=== PATIENT | female | born 1930 | race Caucasian/White ===

== ENCOUNTER 2018-01-16 09:46 | Inpatient (IN) ==
[2018-01-16] MEDS ORDERED: Clindamycin 900 MG/50 ML 900 MG/50 ML IV.SOLN IVPB ONE (10:18)
[2018-01-16] MEDS ORDERED: Ringers Solution, Lactated 1,000 ML IVC SCH ×2 (10:30→13:55)
--- NOTE | 2018-01-16 10:32 | History & Physical Report ---
Date of Encounter: 01/16/18 Time of Encounter: 10:31 24 Hour HP Update - Instructions Instructions: If the History and Physical is less than 30 days old and was completed prior to A.M. admission and or procedure and has NOT been updated on calendar day of procedure please complete this update prior to performing procedure. - Update Patient reports changes in Medical Condition: No Changes in examination, assessment, or condition: No Changes in Medication: No Preop tests/diagnostics Reviewed: Yes Surgery Remains Indicated: Yes Consent for Planned Operative Procedure(s) Verified: Yes - Pre-Operative Checklist Preoperative Checklist Indicated: No Prophylactic Antibiotic Ordered: Yes Is VTE Prophylaxis Indicated?: Yes
[2018-01-16] MEDS ORDERED: Acetaminophen IV 1,000 MG/100 ML INFUS..BTL IVPB ONE (11:03)
[2018-01-16] MEDS ORDERED: Famotidine 20 MG/2 ML VIAL IVP ONE (11:03)
--- NOTE | 2018-01-16 11:13 | Anesthesia Evaluation PreOp ---
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) Other Medical History: Denies Any Significant HX, Other (Cataracts [facility] [place]) Anesthesia History: No Prior Anesthetic Complications, Problems (N/V) Alcohol Use: none Drug use: none Medications and Allergies Duloxetine HCl [Cymbalta] 60 mg PO DAILY 02/28/15 [History] Enalapril Maleate [Vasotec] 10 mg PO DAILY 02/28/15 [History] Ascorbic Acid [Vitamin C] 1,000 mg PO 01/16/18 [History] Cholecalciferol (Vitamin D3) [Vitamin D] 1,000 unit PO DAILY 01/16/18 [History] Ipratropium [place] 15 ml NS BID 01/16/18 [History] Metoprolol Succinate [Toprol Xl] 25 mg PO DAILY 01/16/18 [History] Tramadol HCl [Ultram] 50 mg PO BID PRN 01/16/18 [History] Vit A/Vit C/Vit E/Zinc/Copper [Preservision Areds Tablet] 1 each PO DAILY [History] Vitamin B Complex [B Complex] 1 each PO DAILY 01/16/18 [History] 3 Allergy/AdvReac Type Severity Reaction Status Date / Time ampicillin Allergy See Verified 02/28/15 16:49 Comments Cefaclor [From Ceclor] Allergy See Verified 02/28/15 16:49 Comments Cefadroxil [From Duricef] Allergy See Verified 02/28/15 16:49 Comments cephalexin [From Keflex] Allergy See Verified 02/28/15 16:49 Comments chloramphenicol Allergy See Verified 02/28/15 16:49 [From Chloromycetin] Comments ciprofloxacin [From Cipro] Allergy See Verified 02/28/15 16:49 Comments cyclopenthiazide Allergy See Verified 02/28/15 16:49 Comments doxycycline Allergy See Verified 02/28/15 16:49 Comments Erythromycin Base Allergy See Verified 02/28/15 16:49 Comments nitrofurantoin Allergy See Verified 02/28/15 16:49 [From Macrobid] Comments Penicillins Allergy See Verified 02/28/15 16:49 Comments phenylbutazone Allergy See Verified 02/28/15 16:49 [From Butazolidin] Comments propoxyphene [From Darvon] Allergy See Verified 02/28/15 16:49 Comments Streptomycin Allergy See Verified 02/28/15 16:49 Comments Sulfa (Sulfonamide Allergy See Verified 02/28/15 16:49 Antibiotics) Comments - Meds/Allergy Pre-op Review Medications Reviewed: Yes Allergies Reviewed: Yes Beta Blockers on Current Med List: Yes (Metoprolol today 0800) Anesthesia Results - Labs Laboratory Tests 01/15/18 01/15/18 10:56 10:56 Hgb 16.0 H Hct 48.4 H Plt Count 207 Sodium 136 Potassium 4.6 BUN 19 Creatinine 0.89 - Imaging EKG: report reviewed (SR) Additional studies: ECHO 2016 EF 60% mild pulm htn Anesthesia Exam O2 Sat Height 1.63 m Height 1.63 m Weight 96.162 kg Weight 96.162 kg O2 Sat by Pulse Oximetry 96 Vital Signs Temp Pulse Resp BP Pulse Ox 98.2 F 63 18 145/82 96 01/16/18 10:49 01/16/18 10:49 01/16/18 10:49 01/16/18 10:49 01/16/18 10:49 Height: 5'4 Weight: 212 lbs NPO (# of Hours): MN Pain Scale: 0 - HEENT Pupil (Motor): Pupils equal, EOMI Mallampati: III Denture Type: Upper: Complete Oral Opening: Greater than 3 - 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
[2018-01-16] MEDS ORDERED: *HR* FentaNYL (PF) 100 MCG/2 ML VIAL ONE (11:25)
[2018-01-16] MEDS ORDERED: Dexamethasone 4 MG/ML VIAL ONE ×2 (11:33→12:19)
[2018-01-16] MEDS ORDERED: Bupivacaine/Clonidine Syringe 1 EACH SYRINGE ONE (11:36)
[2018-01-16] MEDS ORDERED: ROPIVACAINE HCL/PF 0.5% 30 ML VIAL ONE (11:36)
[2018-01-16] MEDS ORDERED: *HR* Succinylcholine 200 MG/10 ML VIAL IVP ONE (11:38)
[2018-01-16] MEDS ORDERED: *HR* Propofol 200 MG/20 ML VIAL IVP ONE (11:38)
[2018-01-16] MEDS ORDERED: Lidocaine -MPF 2% 2 ML VIAL ONE (11:38)
[2018-01-16] MEDS ORDERED: *HR* Labetalol 20 MG/4 ML SYRINGE IVP PRN (11:51)
[2018-01-16] MEDS ORDERED: *HR* Promethazine 25 MG/ML VIAL IVP PRN (11:51)
[2018-01-16] MEDS ORDERED: *HR* OxyCODONE Immed Rel 5 MG TABLET PO PRN ×2 (11:51→13:55)
--- NOTE | 2018-01-16 12:10 | Discharge Summary ---
<Osmin Estrada - Last Filed: 01/16/18 12:08> Orders not resulted at time of discharge: Pending orders 01/16/18 10:32 XR shoulder complete RT [XR] Routine 01/16/18 10:33 Hemoglobin and Hematocrit [HEME] Routine 01/16/18 11:03 US anesthesia pain block [US] Routine Date of Encounter: 01/16/18 - Discharge Diagnosis (1) Hypertension Priority: Secondary Status: Chronic Qualifiers: Hypertension type: unspecified Qualified Code(s): I10 - Essential (primary ) hypertension (2) Obesity (BMI 35.0-39.9 without comorbidity) Priority: Secondary Status: Chronic (3) Right rotator cuff tear arthropathy Priority: Primary Status: Chronic (4) Status post reverse total replacement of right shoulder Priority: Primary Status: Acute (5) Hyperlipidemia Priority: Secondary Status: Chronic Qualifiers: Hyperlipidemia type: unspecified Qualified Code(s): E78.5 - Hyperlipidemia , unspecified - Hospital Course Hospital course: Ms. Mitchell is a 87 year old female - Time Spent with Patient Total time spent providing and/or coordinating discharge services: - Discharge Medications Home Medications: Duloxetine HCl [Cymbalta] 60 mg PO DAILY 02/28/15 [History] Enalapril Maleate [Vasotec] 10 mg PO DAILY 02/28/15 [History] Ascorbic Acid [Vitamin C] 1,000 mg PO 01/16/18 [History] Cholecalciferol (Vitamin D3) [Vitamin D3] 1,000 unit PO DAILY 01/16/18 [History] Ipratropium [place] 15 ml NS BID 01/16/18 [History] Metoprolol Succinate [Toprol Xl] 25 mg PO DAILY 01/16/18 [History] OxyCODONE Immed Rel [Roxicodone 5 MG] 5 mg PO Q4HR PRN 5 Days #20 tablet [Rx] Tramadol HCl [Ultram] 50 mg PO BID PRN 01/16/18 [History] Vit A/Vit C/Vit E/Zinc/Copper [Preservision Areds Tablet] 1 each PO DAILY [History] Vitamin B Complex [B Complex] 1 each PO DAILY 01/16/18 [History] Allergies/Adverse Reactions: 3 Allergy/AdvReac Type Severity Reaction Status Date / Time ampicillin Allergy See Verified 02/28/15 16:49 Comments Cefaclor [From Ceclor] Allergy See Verified 02/28/15 16:49 Comments Cefadroxil [From Duricef] Allergy See Verified 02/28/15 16:49 Comments cephalexin [From Keflex] Allergy See Verified 02/28/15 16:49 Comments chloramphenicol Allergy See Verified 02/28/15 16:49 [From Chloromycetin] Comments ciprofloxacin [From Cipro] Allergy See Verified 02/28/15 16:49 Comments cyclopenthiazide Allergy See Verified 02/28/15 16:49 Comments doxycycline Allergy See Verified 02/28/15 16:49 Comments Erythromycin Base Allergy See Verified 02/28/15 16:49 Comments nitrofurantoin Allergy See Verified 02/28/15 16:49 [From Macrobid] Comments Penicillins Allergy See Verified 02/28/15 16:49 Comments phenylbutazone Allergy See Verified 02/28/15 16:49 [From Butazolidin] Comments propoxyphene [From Darvon] Allergy See Verified 02/28/15 16:49 Comments Streptomycin Allergy See Verified 02/28/15 16:49 Comments Sulfa (Sulfonamide Allergy See Verified 02/28/15 16:49 Antibiotics) Comments Primary care physician: Bairon Salguero MD - Patient Status Disposition: Home Health Service Condition: Good - Discharge Instructions Follow Up With: Corinne Nolen PAC [Physician Airways Control Specialist] - 01/23/18 1:45 pm Bairon Salguero MD [Primary Care Provider] - Additional Instructions: Discharge Instructions: Total Shoulder Please call [facility] ([phone]), your Primary Care Physician, or report to the Emergency Room if you have any of the following symptoms: Nausea, vomiting, fever greater that 101.5, swelling, chest pain, shortness of breath, increased pain/redness/drainage/odor for your incision site, numbness/ tingling, or any other concerning symptoms. ACTIVITY: Always keep your arm in the sling. Do not raise your arm away from your body. Do not use your arm to help with getting in or out of bed. No weight bearing permitted. Only perform those exercises given to you by your therapist. Incentive Spirometer 10 times an hour. MEDICATIONS: Upon discharge resume your home medications. Take all the medications as prescribed. Take a stool softener if taking narcotic pain medications. Stool softeners are only effective if you drink enough fluids. Drink 6-8 glass of water or fluids a day, unless this is not allowed for another health problem. Despite using stool softeners, if you haven't had a bowel movement in 3 days, please switch to a gentle laxative. Gentle laxatives are sold over the counter. You should have a bowel movement within 24 hours, if not call the office. You will be discharged from the hospital with a prescription for pain medication. You are encouraged to decrease the use of narcotic pain medication as tolerated. Should you require a refill, please call the office. [facility] prescribes narcotic pain medication for only 4-6 weeks after surgery. If you require pain medication beyond this time period, you may be referred to your Primary Care Physician or to the Pain Clinic for further evaluation. Plan ahead for refills on pain medication as many narcotics either need to be picked up at the office or mailed. It is best to call 48-72 hours in advance of needing a prescription refill so you don't run out of medication. To help control the post-operative pain, you may take NSAIDs (Aleve,Advil, Motrin, Ibuprofen, Naprosyn) or Tylenol as prescribed on the bottle in addition to the pain medication. WOUND CARE: Leave the dressing on for 7-10 days. You may change the dressing if it becomes saturated greater than 50%. Do not get the dressing wet at anytime. Wash your hands with antibacterial soap, rinse and dry prior to any wound care. If you have néstor the visiting nurse or rehab facility can remove the stapes 10-14 days after surgery and place steri-strips across the wound. Leave the steri-strips in place until they fall off on their own. You may let water from the shower run on top of the steri-strips. If you do not have a visiting nurse or rehab facility, you will need to return to the office at 10-14 days for the néstor to be removed. If you have itching or redness around the dressing call the office. FOLLOW-UP: Please follow up with your surgeon in the orthopedic clinic, as scheduled <Arin Riojas - Last Filed: 01/17/18 13:48> Orders not resulted at time of discharge: Pending orders 01/16/18 11:03 US anesthesia pain block [US] Routine 01/16/18 12:55 Surgical Pathology [PTH] Routine 01/18/18 04:00 Hemoglobin and Hematocrit [HEME] AM 0400 Date of Encounter: 01/17/18 Time of Encounter: 12:15 - Discharge Diagnosis (1) Status post reverse total replacement of right shoulder Priority: Primary Status: Acute (2) Hyperlipidemia Priority: Secondary Status: Chronic Qualifiers: Hyperlipidemia type: unspecified Qualified Code(s): E78.5 - Hyperlipidemia , unspecified (3) Hypertension Priority: Secondary Status: Chronic Qualifiers: Hypertension type: unspecified Qualified Code(s): I10 - Essential (primary ) hypertension (4) Obesity (BMI 35.0-39.9 without comorbidity) Priority: Secondary Status: Chronic (5) Right rotator cuff tear arthropathy Priority: Primary Status: Chronic - Hospital Course Hospital course: Ms. Mitchell is a 87 year old female status post Right TSR reverse 01/16/18 with a history of HTN, obesity, HLD . Patient had uneventful postoperative course. Stable for discharge. Patient seen at bedside, without complaints. A&O x 3 Afebrile, vital signs stable. Labs reviewed. H/H 14.4/43.8- stable, asymptomatic Pain control: adequate Participating in PT. All questions and concerns addressed. Educated on use of incentive spirometer. Encouraged ambulation and proper hydration. Patient educated on post-operative restrictions and post-operative care. Assessment and plan: Continue with postoperative care Discharge plan: Home with home therapy, discharge today. - Time Spent with Patient Total time spent providing and/or coordinating discharge services: Date of admission: 01/16/18 13:53 Primary care physician: Bairon Salguero MD Consults: 01/16/18 13:55 Consult to Occupational Therapy [CONS] Routine Comment: post shoulder surgery Reason for Consult: post shoulder surgery Does patient have active BEDREST order?: No Is patient medically & hemodynamically stable?: Yes Consult to Physical Therapy [CONS] Routine Comment: post shoulder surgery Reason for Consult: post shoulder surgery Does patient have active BEDREST order?: No Is patient medically & hemodynamically stable?: Yes RT Post Op Consult [CONS] Routine 01/17/18 10:20 Consult to Compressed Gases Tester [CONS] Routine Reason for SW Consult: Pt needs home health care set up. Discharging clinician: Osmin Estrada Anticipated date of discharge: 01/17/18 Labs on day of discharge: Labs from last 24 hours 01/17/18 01/16/18 01:36 13:25 Hgb 14.4 14.0 D Hct 43.8 42.2 - Impressions ITS Impressions Shoulder X-Ray 01/16/18 10:32 IMPRESSION: Status post right shoulder arthroplasty without evidence of acute postoperative complication. D/ / 01/16/2018 14:12:38 Jerry Tobar MD / bcarter Interpreting Provider: Jerry Tobar MD - Patient Status Functional capacity at discharge: independent ambulation Overall status at discharge: patient is back to baseline - Diet and Activity Activity: as per physical therapy Diet: advance to your usual diet
[2018-01-16] MEDS ORDERED: Ondansetron 4 MG/2 ML VIAL ONE (12:23)
[2018-01-16] MEDS ORDERED: Ketorolac 30 MG/ML VIAL ONE (12:54)
[2018-01-16] MEDS ORDERED: *HR* Labetalol 100 MG/20 ML MDV ONE (13:00)
--- NOTE | 2018-01-16 13:04 | Orthopedic Operative Note ---
Date of procedure: 01/16/18 Pre-op diagnosis: Right shoulder cuff tear arthropathy Post-op diagnosis: same Procedure: Procedure: Total Shoulder Replacment Reverse, right Estimated blood loss: 100 cc Hardware: Metal and polyethylene replacement: Arthrex 24 mm, +2 , 25 mm screw glenoid baseplate, 2 4.5 screws. 2 5.5 screw, 39+4 glenosphere,7 humeral stem, poly insert 3 and 6 metal Exam Under anesthesia: Full motion no instability Procedural Notes: Grade 4 arthritic changes humeral head and glenoid socket, rotator cuff tear Operative procedure: The patient was brought to the operating room and placed on the operating room table. After general anesthesia was administered the operative shoulder was examined. Findings were noted. The patient was placed in the modified beachchair position. All pressure points were padded appropriately. And the head was stabilized in the neutral position. The operative extremity was prepped and draped in the sterile surgical fashion. The patient received IV antibiotics prior to skin incision. A standard deltopectoral approach was made to the operative shoulder. Incision was made to the skin and subcutaneous tissue,hemo stasis was obtained with Bovie cautery. Using careful blunt dissection the cephalic vein was identified and mobilized medially. The deltopectoral interval was developed and the clavipectoral fascia was incised. The subscap was released off the lesser tuberosity and tagged with #2 FiberWire suture subscap was irreparable. The humerus was dislocated patient noted to have tear supraspinatus tendon, and the humeral cut was made along the anatomic neck. Patient noted to have grade 4 arthritic changes humeral head. Anterior and posterior Bankart retractors were placed to expose the glenoid. Patient noted to have grade 4 arthritic changes glenoid socket. The glenoid guide was seated and the centering hole was made. It was reamed with the appropriate reamer. The 24 mm, +2, 25 mm screw was seated and secured with (2) 4.5 screws and 2 5.5 screw. The baseplate was irrigated and dried and the 39+2 Glenosphere was seated and secured with the Kwan taper. The Kwan taper was tested and found to be secure the humerus was redislocated and prepared with the diaphyseal reamers, followed by a broaching process up to the appropriate size 7 in the patient's anatomic version. The metaphyseal reamer was then utilized. Trial reduction found the shoulder to be relocatable. Trial components were removed and 7 stem was impacted in place in the patient's anatomic version. Trial reduction found the shoulder to be relocatable and stable with the appropriate 3 Brianne 9 metal Trial component was removed and the real implant was seated and secured the shoulder was reduced. The shoulder had excellent motion and excellent stability and no evidence of dislocation. The deep tissue was irrigated with pulse irrigation. The deltopectoral interval was closed with a running #1 PDS suture, subcutaneous tissue was irrigated and closed with 0 PDS suture, the skin was closed with Dermabond. The patient was placed in a sterile dressing, abduction brace and extubated. The patient was then transferred to the recovery room in stable condition. Anesthesia: ALPHONSE Surgeon: Osmin Estrada Was there an parts room assistant present: No Estimated blood loss (cc): 100 Condition: stable Disposition: PACU
--- NOTE | 2018-01-16 13:13 | Anesthesia Procedures ---
Date of Encounter: 01/16/18 Time of Encounter: 11:10 Procedures: Anesthesia - Nerve Block Procedure Date: 01/16/18 Time: 11:45 Pre-op Diagnosis: Rt Shoulder Arthropathy Surgical Procedure: Rt TSR Checklist: Correct Patient Identifier Correct side: Right Blood Thinner: No Monitor Applied: EKG, BP, Pulse Oximetry Supplemental Oxygen via Nasal Cannula (L/min): 2 Sedation: Fentanyl (mcg): 100 Indication: Post Op Analgesia Pre-op Neuro Deficits: No Block Type: Supraclavicular Catheter placed: No Depth at skin (cm): 2 Sterile Technique: Yes Ultrasound used: Yes Anatomy identified: Yes Visual spread of Local: Yes Neuro Stimulation: No Blood on Needle Aspiration: No Smooth Injection of Local: Yes Pain with Injection of Local: No Prep: Chlorhexadine Needle: 22 x 50 mm Stimuplex Local: 0.25% Bupivicaine w/Clonidine 20 mcg/cc, Ropivacaine Volume (cc): 30 Number of Attempts: 1 Complications: None/effective block
--- NOTE | 2018-01-16 13:43 | Anesthesia Evaluation Post Op ---
Date of Encounter: 01/16/18 Time of Encounter: 13:42 - Vital Signs Vital Signs: Vital Signs Temperature 98.2 F 01/16/18 10:49 Pulse Rate 63 01/16/18 10:49 Respiratory Rate 18 01/16/18 10:49 Blood Pressure 145/82 01/16/18 10:49 O2 Sat by Pulse Oximetry 96 01/16/18 10:49 Temperature 97.2 F L 01/16/18 13:10 Pulse Rate 66 01/16/18 13:30 Respiratory Rate 16 01/16/18 13:30 Blood Pressure 158/74 01/16/18 13:30 O2 Sat by Pulse Oximetry 94 01/16/18 13:30 - Lungs Lungs: Clear Ascult./Percussion - Airway Airway: Non-obstructed - Cardiovascular Baseline Rhythm - Mental Status Mental Status: Alert & Oriented, Answers Appropriately - Pain Pain Scale: 0 Pain Scale used: Numeric (1 - 10) - Nausea Vomiting Nausea Vomiting: Not Present - Hydration Hydration: Ice chips Notes: 01/16/18 13:42 pt with a cough and large amounts of clear phlegm, lungs clear bilaterally - Discharge PostOp Status: Transfer Patient to floor
[2018-01-16 13:52] LABS: Hematocrit 42.2 % (35.3-44.9)
[2018-01-16] MEDS ORDERED: MOM Conc 10 ML UD.LIQ PO PRN (13:55)
[2018-01-16] MEDS ORDERED: Ondansetron 4 MG/2 ML VIAL IVP PRN (13:55)
[2018-01-16] MEDS ORDERED: Naloxone 0.4 MG/ML INJ IVP PRN (13:55)
[2018-01-16] MEDS ORDERED: Sennosides 8.6 MG TABLET PO PRN (13:55)
[2018-01-16] MEDS ORDERED: Temazepam 15 MG CAPSULE PO PRN (13:55)
[2018-01-16] MEDS ORDERED: *HR* OxyCODONE/APAP 5/325 TABLET PO PRN (13:55)
[2018-01-16] MEDS ORDERED: Clindamycin 900 MG/50 ML 900 MG/50 ML IV.SOLN IVPB SCH (16:00)
[2018-01-16] MEDS ORDERED: *HR* Enoxaparin 30 MG/0.3 ML SYRINGE SQ SCH (18:00)
[2018-01-16] MEDS: *HR* Enoxaparin 30 MG/0.3 ML SYRINGE SQ SCH (18:57)
[2018-01-16] MEDS ORDERED: IPRATROPIUM BROMIDE NS SCH (21:00)
[2018-01-16] MEDS: Clindamycin 900 MG/50 ML 900 MG/50 ML IV.SOLN IVPB SCH (21:25)
[2018-01-17 01:53] LABS: Hematocrit 43.8 % (35.3-44.9); Hemoglobin 14.4 g/dL (11.5-15.4)
[2018-01-17] MEDS: Clindamycin 900 MG/50 ML 900 MG/50 ML IV.SOLN IVPB SCH (04:46)
[2018-01-17] MEDS: traMADol 50 MG TABLET PO PRN ×2 (06:03→13:40)
[2018-01-17] MEDS: *HR* Enoxaparin 30 MG/0.3 ML SYRINGE SQ SCH (06:03)
--- NOTE | 2018-01-17 08:27 | Physician Discharge Referral ---
Home Health/Hosp Referral Info Transfer to: Home Health Attending Provider: Sean - Diagnosis (1) Status post reverse total replacement of right shoulder Priority: Primary Status: Acute (2) Hyperlipidemia Priority: Secondary Status: Chronic (3) Hypertension Priority: Secondary Status: Chronic (4) Obesity (BMI 35.0-39.9 without comorbidity) Priority: Secondary Status: Chronic (5) Right rotator cuff tear arthropathy Priority: Secondary Status: Chronic - Respiratory Orders Smoking Cessation: Smoking cessation has been advised. For more information, call the [employer] Tobacco Quit Line at 5-081-NNZR-NOW. - Diet/Nutrition Diet/Nutrition Orders: Regular - Activity Activity Orders: Ambulate, Chair - Services Needed Following services are medically necessary services: Physical Therapy, Occupational Therapy Home Care Orders: Opsite dressing, leave intact until first post-operative visit. Zipline/Watson in place, plan to remove at post-operative day #14-16. If dressing becomes >50% saturated, contact office, remove dressing and place appropriate dressing in its place. Do not allow for dressing to get wet. Shoulder Precautions x 6 weeks. Apply cold therapy wrap 3-6x/day for 20 minutes at a time. Encourage ambulation throughout the day. Use Incentive spirometer 10x/hour. Elevate affected extremity above heart as tolerated. NWB to affected upper extremity x 6 weeks. Will remove brace at first post-operative appointment. OK to remove during PT/ OT and Home exercises. - Transfer Medications Home Medications: Duloxetine HCl [Cymbalta] 60 mg PO DAILY 02/28/15 [History] Enalapril Maleate [Vasotec] 10 mg PO DAILY 02/28/15 [History] Ascorbic Acid [Vitamin C] 1,000 mg PO 01/16/18 [History] Cholecalciferol (Vitamin D3) [Vitamin D] 1,000 unit PO DAILY 01/16/18 [History] Ipratropium [place] 15 ml NS BID 01/16/18 [History] Metoprolol Succinate [Toprol Xl] 25 mg PO DAILY 01/16/18 [History] OxyCODONE Immed Rel [Roxicodone 5 MG] 5 mg PO Q4HR PRN 5 Days #20 tablet [Rx] Tramadol HCl [Ultram] 50 mg PO BID PRN 01/16/18 [History] Vit A/Vit C/Vit E/Zinc/Copper [Preservision Areds Tablet] 1 each PO DAILY [History] Vitamin B Complex [B Complex] 1 each PO DAILY 01/16/18 [History] Allergies/Adverse Reactions: 3 Allergy/AdvReac Type Severity Reaction Status Date / Time ampicillin Allergy See Verified 02/28/15 16:49 Comments Cefaclor [From Ceclor] Allergy See Verified 02/28/15 16:49 Comments Cefadroxil [From Duricef] Allergy See Verified 02/28/15 16:49 Comments cephalexin [From Keflex] Allergy See Verified 02/28/15 16:49 Comments chloramphenicol Allergy See Verified 02/28/15 16:49 [From Chloromycetin] Comments ciprofloxacin [From Cipro] Allergy See Verified 02/28/15 16:49 Comments cyclopenthiazide Allergy See Verified 02/28/15 16:49 Comments doxycycline Allergy See Verified 02/28/15 16:49 Comments Erythromycin Base Allergy See Verified 02/28/15 16:49 Comments nitrofurantoin Allergy See Verified 02/28/15 16:49 [From Macrobid] Comments Penicillins Allergy See Verified 02/28/15 16:49 Comments phenylbutazone Allergy See Verified 02/28/15 16:49 [From Butazolidin] Comments propoxyphene [From Darvon] Allergy See Verified 02/28/15 16:49 Comments Streptomycin Allergy See Verified 02/28/15 16:49 Comments Sulfa (Sulfonamide Allergy See Verified 02/28/15 16:49 Antibiotics) Comments Certification: Further, I certify that my clinical findings support that this patient is homebound (i.e. absences from home require considerable and taxing effort and are for medical reasons or muslim services or infrequently or short duration when for other reasons) because: Homebound Reason: Post-surgery restriction and or conditions limit ability to leave home Attestation: My signature below is to certify that this patient is under my care and that I, or nurse practitioner, or a physician ward assistant working with me, has a face-to- face encounter with this patient.
[2018-01-17] MEDS ORDERED: Cholecalciferol (D-3) 1,000 UNIT TABLET PO SCH (09:00)
[2018-01-17] MEDS ORDERED: Lisinopril 20 MG TABLET PO SCH (09:00)
[2018-01-17] MEDS ORDERED: Vitamin B Complex/Vit C/Vit E 1 EACH TABLET PO SCH (09:00)
[2018-01-17] MEDS ORDERED: Metoprolol XL (24 HR) Succ 25 MG TAB.ER.24H PO SCH (09:00)
[2018-01-17] MEDS ORDERED: Multivit/Ca/Min/Fe/FA 1 TAB TABLET PO SCH (09:00)
[2018-01-17 11:18] VITALS: BP 127/71
--- NOTE | 2018-01-19 14:51 | Electrocardiograph Report ---
[place] [facility] Test Date: 2018-01-16 Pat Name: Saloni Mitchell Department: 101 Room: [facility] Gender: F Brush Sander: NATHANIEL : 1930 Requested By: Kenny Clifford Order Number: [id number] Reading MD: Joby Childress Measurements Intervals [place] Rate: 62 P: -10 WI: 161 QRS: 7 QRSD: 96 T: 13 QT: 433 QTc: 439 Interpretive Statements SINUS RHYTHM Electronically Signed On 01-19-2018 14:49:35 EDT by Joby Childress
== END 2018-01-17 14:00 | disposition home health service (06) | DRG 483 ==
LOC: SAMDAY 09:46 → 3NENU 13:53
PROVIDERS: ADMIT Orthopaedic Surgery; ATTEND Orthopaedic Surgery